=== PATIENT | female | born 1955 | race Caucasian/White ===

== ENCOUNTER → 2017-01-14 | Outpatient (CLI) | payer MEDICARE, MEDICAID ==
[~2017-01-14] MED LIST: ATORVASTATIN CA20 M1 PO; AUGMENTIN 875-1 EACH PO; AURALGAN OT10 ML/BOT OT; BACTRIM DS 8001 TAB PO; HCTZ/TRIAMTEREN1 CAP PO; HYDROCHLOROTHIA25 M1 PO; KEFLEX 500MG.500 MG PO; LASIX 20MG. TAB20 MG PO; LORAZEPAM1 MG/TABLE OR; LORTAB 5/500 501 TAB PO; METOPROLOL SUCC50 M4 PO; METOPROLOL25 MG PO; METOPROLOL50 MG PO; NITROGLYCERIN0.4 M1 SL; NOMEDS; OMEPRAZOLE20 MG PO; ONDANSETRON4 M1 PO; PERCOCET 5/3251 EACH PO; PROAIR HFA0.09 MG/AC IH; SEPTRA DS 800 M1 TAB PO; SYMBICORT1 AE1 IH; TOPIRAMATE50 MG PO; VOLTAREN50 MG PO
== END ==
LOC: LAB 12:39
DX: N39.0 Urinary tract infection, site not specified (principal)

== ENCOUNTER 2017-01-20 21:54 | Emergency (ER) | payer MEDICARE, MEDICAID ==
[~2017-01-20] VITALS: Ht 167.6 cm; Wt 65.8 kg
[~2017-01-20 21:54] MED LIST changes: -ATORVASTATIN CA20 M1 PO; -AUGMENTIN 875-1 EACH PO; -HCTZ/TRIAMTEREN1 CAP PO; -LASIX 20MG. TAB20 MG PO; -NITROGLYCERIN0.4 M1 SL
[2017-01-20] MEDS ORDERED: HCTZ/TRIAMTEREN1 CAP PO (22:02)
[2017-01-20] MEDS ORDERED: KEFLEX 500MG.500 MG PO (22:02)
[2017-01-20] MEDS ORDERED: ATORVASTATIN CA20 M1 PO (22:02)
[2017-01-20] MEDS ORDERED: NITROGLYCERIN0.4 M1 SL (22:03)
--- NOTE | 2017-01-20 22:08 | Emergency Room Report ---
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 DENIES SOB. C/O NAUSEA. HAD HEART CATH ONE WEEK AGO AND HAS 1 BLOCKAGE 40%. 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 N Clinical Suspician of Infection? N Mental Status: 1 - Regular (Normal Baseline) Sepsis Risk:Low Sepsis Risk Have you (or family members/close friends) recently traveled outside the [place]? N If Yes, where/when: Have you had exposure to infectious disease within the past month? N TB? Other? Specify: Source patient, RN notes reviewed, family, RN/MD Exam Limitations no limitations Comment This is a 61-year-old female patient presented to the emergency room with chest pain onset 1 hour ago, associated with productive cough for the past 3 days. Patient had a cardiac catheterization a week ago by Dr. Hamlin, showing 40 percent coronary blockages, per patient. Patient stated that she also has some mild leg swelling, but she is already on Triamtere for this. Patient's chest pain appears pleuritic in nature, worse with deep inspiration, without associated shortness of breath or radiation. Patient denies any recent travel or exposure to sick contacts. ALLERGIES Coded Allergies: Bumble Bee (BEE,BUMBLE) (05/22/16) Home Medications Active Scripts Ondansetron Hydrochloride (Ondansetron Odt) 4 MG PO Q6HP PRN vomiting #6 ODT Prov: 05/22/16 Reported Medications Metoprolol Succinate (Metoprolol Succinate XL) 50 MG PO DAILY #30 Hydrochlorothiazide W/Triamter (Triamterene-Hctz 37.5-25 MG Tb) 1 CAP PO DAILY #30 Atorvastatin Calcium 20 MG PO DAILY #30 CEPHALEXIN (Keflex 500MG Capsule) 500 MG PO BID #20 Nitroglycerin 0.4 MG SL Q 5MIN PRN CHEST PAIN #25 History Medical History General CAD? Yes Angina: Yes [place]: No Hypertension? Yes Hyperlipidemia? Yes CHF? No DVT? No PE? No COPD? Yes Asthma? Yes Anemia? No GERD? No Gastric ulcers? No GI Bleed? No Hernia? No Thyroid Problems? No Hypothyroidism? No CVA? No Seizures? No Diabetes? No Renal Insuffiency? No End Stage Renal Disease? No UTI? Yes Stones? No BPH? No GB Disease: Yes Nephritic Syndrome? No Asplenia? No Hepatitis? No Sickle Cell Disease? No Arthritis? No Migraines? No Cataracts? No Glaucoma? No MRSA? No HIV? No TB? No Anxiety? No Depression? No Cancer? Yes Site: CERVICAL CA More? No Immunization Hx DT/Tetanus 10/26/09 Flu Refused Pneumonia Received In Past Surgical Hx Previous Surgery?Y JOHNSON GallbladdER HEART CATH Family History Family Hx Diabetes No CAD No Hypertension Yes Hyperlipidemia No Cancer Yes TB No Social History Smoking Hx Smoker: Current Every Day Smoker Tobacco: Yes Type Cigarettes Packs/day < 1 Pack Alcohol Alcohol: No Review of Systems All Other Systems Reviewed and Negative Cardiovascular chest pain Physical Exam Vital Signs Vital Signs Date Time Temp Pulse Resp B/P Pulse O2 O2 Flow FiO2 Ox Delivery Rate 01/21 0020 97.5 67 20 141/76 96 01/21 0020 97.5 67 20 141/76 96 / 2349 97.5 72 20 147/85 98 / 2312 97.5 67 20 147/85 98 / 2225 75 20 133/77 98 / 2156 97.5 80 20 159/91 98 General Appearance normal appearance, WD/WN, no apparent distress Respiratory Status Yes: trachea midline, chest symmetrical, non tender chest. No: respiratory distress. Lung Sounds bilateral: normal breath sounds, lungs clear. 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 No Comment Upon evaluation patient appears medically stable, in no acute distress. Advised patient results obtained, as well the need to initiate antibiotic therapy for her symptoms at this time. Advised patient to switch from her current diuretic to Lasix, and see if it'll help her leg edema. Encourage patient to follow-up with accountancy professor as previously scheduled. Results/Orders Laboratory Tests 01/20/17 2319: Opiates Screen NEGATIVE, Urine Methadone Screen NEGATIVE, Barbiturates NEGATIVE, Phencyclidine Screen NEGATIVE, Amphetamines Screen NEGATIVE, Benzodiazepines Screen NEGATIVE, Cocaine Screen NEGATIVE, Marijuana (THC) Screen NEGATIVE, Urine Color YELLOW, Urine Appearance CLEAR, Urine pH 5.5, Ur Specific [place] 1.015, Urine Protein NEGATIVE, Urine Ketones NEGATIVE, Urine Blood NEGATIVE, Urine Nitrate NEGATIVE, Urine Bilirubin NEGATIVE, Urine Urobilinogen 0.2, Ur Leukocyte Esterase TRACE H, Urine RBC 5-10, Urine WBC 3-5, Ur Squamous Epith Cells 3-5, Urine Bacteria 1+, Hyaline Casts 5-10, Urine Mucus 1+, Urine Glucose NEGATIVE 01/20/17 2250: Sodium 140, Potassium 3.5, Chloride 99, Carbon Dioxide 32, BUN 17, Creatinine 1.1 H, Estimated Creat Clear 56, Estimated GFR (MDRD) 50 L, Glucose 144 H, Calcium 9.8, Total Bilirubin 0.2, AST 15, ALT 28, Alkaline Phosphatase 117 H, Creatine Kinase 113, CK-MB (CK-2) Rel Index 0.7, CK and CKMB Interp 0.8, Troponin I < 0.02, Total Protein 8.5 H, Albumin 4.1, Globulin 4.4 H, Albumin/ Globulin Ratio 0.9 L, WBC 10.6, RBC 4.86, Hgb 14.2, Hct 43.4, MCV 89.4, RDW 13.0, Plt Count 258, MPV 7.6, Gran % 65.3, Gran # 7.0, Lymphocytes % 27.5, Monocytes % 4.2, Eosinophils % 2.5, Basophils % 0.5, Lymphocytes # 2.9, Monocytes # 0.4, Eosinophils # 0.3, Basophils # 0.1, PUBS MCHC 32.8, MCH 29.3 Current Medication Orders Sig/Meli Start time Last Medication Dose Route Stop Time Status Admin Amoxicillin/ 500 MG ONCE ONE 01/21 15 DC 01/21 Clavulanate Potassium PO 01/22 16 0008 Amoxicillin/ 0 .STK-MED ONE 01/21 7 DC Clavulanate Potassium PO Aspirin 243 MG ONCE ONE 01/20 2215 DC 01/20 PO 01/20 Sodium Chloride 10 ML PRN PRN 01/20 2215 DCD IV 01/21 2205 Aspirin 0 .STK-MED ONE 01/21 2208 DC .ROUTE Orders Procedure Date/time Status URINALYSIS/COMPLETE 01/20 2317 Complete DRUG ABUSE SCREEN (10) 01/20 2317 Complete 12 LEAD EKG-BESSON (INITIAL) 01/20 2207 Active ELECTROCARDIOGRAM REQUEST 01/20 2207 Active CHEST(2 VIEWS-NOT PORTABLE) 01/20 2207 Active IV SALINE LOCK 01/20 2207 Active SUPERVISOR SHIP MAINTENANCE SERVICES 01/20 2207 Active CBC WITH AUTO DIFF 01/20 2207 Complete CARDIAC ENZYMES 01/20 2207 Complete CHEM 12 PROFILE 01/20 2207 Complete CM/EKG CM/book editor Rhythm Normal Sinus Rhythm Rate 88 Ectopy No Comments No acute ischemic changes EKG rate, NSR, rhythm, no evid. of ischemic chgs, no ectopy, normal QRS, normal [place], normal EKG, no EKG for comparison, non-spec. ST/Twave chgs, ST elevation, ST depression, LBBB, RBBB, ectopy, abnormal Q waves XRAY/CT/US XRAY/CT/US XRAY chest XR interpretation by reviewed by me Xray Results no infiltrates, normal heart size, normal lung inflation leigha Departure Departure Time of Disposition 2355 Disposition DC Home or Self Care(routine) Clinical Impression Primary Impression: Acute bronchitis Qualifiers: Bronchitis organism: unspecified organism Qualified Code: J20.9 - Acute bronchitis, unspecified Secondary Impressions: Edema Qualifiers: Edema type: unspecified Qualified Code: R60.9 - Edema, unspecified Condition STABLE Referrals Osmin Hamlin MD: 1 Week-Call Office Patient Instructions DI for Acute Bronchitis, DI for Dependent Edema Additional Instructions Please HOLD the Triamterene (Hctz/Dyazide) at this time and switch to Lasix 20mg (prescription attached). Please follow up with Dr Hamlin in 1 week. Take the antibiotics prescribed as directed. Discharge Counseling Counseled pt/family regarding diagnosis, test results, medications/RX, home care, follow up needs Comment Please HOLD the Triamterene (Hctz/Dyazide) at this time and switch to Lasix 20mg (prescription attached). Please follow up with Dr Hamiln in 1 week. Take the antibiotics prescribed as directed. Prescriptions Current Visit Scripts Furosemide (Lasix 20MG) 20 MG PO DAILY #30 TAB Amoxicillin/Potassium Clav (Augmentin 875-125 Tablet) 1 EACH PO BID #20 TAB ED Critical Care Critical Care No at [id number]
--- NOTE | 2017-01-20 22:08 | Emergency Room Report ---
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 DENIES SOB. C/O NAUSEA. HAD HEART CATH ONE WEEK AGO AND HAS 1 BLOCKAGE 40%. 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 N Clinical Suspician of Infection? N Mental Status: 1 - Regular (Normal Baseline) Sepsis Risk:Low Sepsis Risk Have you (or family members/close friends) recently traveled outside the [place]? N If Yes, where/when: Have you had exposure to infectious disease within the past month? N TB? Other? Specify: Source patient, RN notes reviewed, family, RN/MD Exam Limitations no limitations Comment This is a 61-year-old female patient presented to the emergency room with chest pain onset 1 hour ago, associated with productive cough for the past 3 days. Patient had a cardiac catheterization a week ago by Dr. Hamlin, showing 40 percent coronary blockages, per patient. Patient stated that she also has some mild leg swelling, but she is already on Triamtere for this. Patient's chest pain appears pleuritic in nature, worse with deep inspiration, without associated shortness of breath or radiation. Patient denies any recent travel or exposure to sick contacts. ALLERGIES Coded Allergies: Bumble Bee (BEE,BUMBLE) (05/22/16) Home Medications Active Scripts Ondansetron Hydrochloride (Ondansetron Odt) 4 MG PO Q6HP PRN vomiting #6 ODT Prov: 05/22/16 Reported Medications Metoprolol Succinate (Metoprolol Succinate XL) 50 MG PO DAILY #30 Hydrochlorothiazide W/Triamter (Triamterene-Hctz 37.5-25 MG Tb) 1 CAP PO DAILY #30 Atorvastatin Calcium 20 MG PO DAILY #30 CEPHALEXIN (Keflex 500MG Capsule) 500 MG PO BID #20 Nitroglycerin 0.4 MG SL Q 5MIN PRN CHEST PAIN #25 History Medical History General CAD? Yes Angina: Yes [place]: No Hypertension? Yes Hyperlipidemia? Yes CHF? No DVT? No PE? No COPD? Yes Asthma? Yes Anemia? No GERD? No Gastric ulcers? No GI Bleed? No Hernia? No Thyroid Problems? No Hypothyroidism? No CVA? No Seizures? No Diabetes? No Renal Insuffiency? No End Stage Renal Disease? No UTI? Yes Stones? No BPH? No GB Disease: Yes Nephritic Syndrome? No Asplenia? No Hepatitis? No Sickle Cell Disease? No Arthritis? No Migraines? No Cataracts? No Glaucoma? No MRSA? No HIV? No TB? No Anxiety? No Depression? No Cancer? Yes Site: CERVICAL CA More? No Immunization Hx DT/Tetanus 10/26/09 Flu Refused Pneumonia Received In Past Surgical Hx Previous Surgery?Y JOHNSON GallbladdER HEART CATH Family History Family Hx Diabetes No CAD No Hypertension Yes Hyperlipidemia No Cancer Yes TB No Social History Smoking Hx Smoker: Current Every Day Smoker Tobacco: Yes Type Cigarettes Packs/day < 1 Pack Alcohol Alcohol: No Review of Systems All Other Systems Reviewed and Negative Cardiovascular chest pain Physical Exam Vital Signs Vital Signs Date Time Temp Pulse Resp B/P Pulse O2 O2 Flow FiO2 Ox Delivery Rate 01/21 0020 97.5 67 20 141/76 96 01/21 0020 97.5 67 20 141/76 96 / 2349 97.5 72 20 147/85 98 / 2312 97.5 67 20 147/85 98 / 2225 75 20 133/77 98 / 2156 97.5 80 20 159/91 98 General Appearance normal appearance, WD/WN, no apparent distress Respiratory Status Yes: trachea midline, chest symmetrical, non tender chest. No: respiratory distress. Lung Sounds bilateral: normal breath sounds, lungs clear. 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 No Comment Upon evaluation patient appears medically stable, in no acute distress. Advised patient results obtained, as well the need to initiate antibiotic therapy for her symptoms at this time. Advised patient to switch from her current diuretic to Lasix, and see if it'll help her leg edema. Encourage patient to follow-up with plater helper as previously scheduled. Results/Orders Laboratory Tests 01/20/17 2319: Opiates Screen NEGATIVE, Urine Methadone Screen NEGATIVE, Barbiturates NEGATIVE, Phencyclidine Screen NEGATIVE, Amphetamines Screen NEGATIVE, Benzodiazepines Screen NEGATIVE, Cocaine Screen NEGATIVE, Marijuana (THC) Screen NEGATIVE, Urine Color YELLOW, Urine Appearance CLEAR, Urine pH 5.5, Ur Specific [place] 1.015, Urine Protein NEGATIVE, Urine Ketones NEGATIVE, Urine Blood NEGATIVE, Urine Nitrate NEGATIVE, Urine Bilirubin NEGATIVE, Urine Urobilinogen 0.2, Ur Leukocyte Esterase TRACE H, Urine RBC 5-10, Urine WBC 3-5, Ur Squamous Epith Cells 3-5, Urine Bacteria 1+, Hyaline Casts 5-10, Urine Mucus 1+, Urine Glucose NEGATIVE 01/20/17 2250: Sodium 140, Potassium 3.5, Chloride 99, Carbon Dioxide 32, BUN 17, Creatinine 1.1 H, Estimated Creat Clear 56, Estimated GFR (MDRD) 50 L, Glucose 144 H, Calcium 9.8, Total Bilirubin 0.2, AST 15, ALT 28, Alkaline Phosphatase 117 H, Creatine Kinase 113, CK-MB (CK-2) Rel Index 0.7, CK and CKMB Interp 0.8, Troponin I < 0.02, Total Protein 8.5 H, Albumin 4.1, Globulin 4.4 H, Albumin/ Globulin Ratio 0.9 L, WBC 10.6, RBC 4.86, Hgb 14.2, Hct 43.4, MCV 89.4, RDW 13.0, Plt Count 258, MPV 7.6, Gran % 65.3, Gran # 7.0, Lymphocytes % 27.5, Monocytes % 4.2, Eosinophils % 2.5, Basophils % 0.5, Lymphocytes # 2.9, Monocytes # 0.4, Eosinophils # 0.3, Basophils # 0.1, PUBS MCHC 32.8, MCH 29.3 Current Medication Orders Sig/Meli Start time Last Medication Dose Route Stop Time Status Admin Amoxicillin/ 500 MG ONCE ONE 01/21 15 DC 01/21 Clavulanate Potassium PO 01/22 16 0008 Amoxicillin/ 0 .STK-MED ONE 01/21 7 DC Clavulanate Potassium PO Aspirin 243 MG ONCE ONE 01/20 2215 DC 01/20 PO 01/20 Sodium Chloride 10 ML PRN PRN 01/20 2215 DCD IV 01/21 2205 Aspirin 0 .STK-MED ONE 01/21 2208 DC .ROUTE Orders Procedure Date/time Status URINALYSIS/COMPLETE 01/20 2317 Complete DRUG ABUSE SCREEN (10) 01/20 2317 Complete 12 LEAD EKG-BESSON (INITIAL) 01/20 2207 Active ELECTROCARDIOGRAM REQUEST 01/20 2207 Active CHEST(2 VIEWS-NOT PORTABLE) 01/20 2207 Active IV SALINE LOCK 01/20 2207 Active TIP INSERTER 01/20 2207 Active CBC WITH AUTO DIFF 01/20 2207 Complete CARDIAC ENZYMES 01/20 2207 Complete CHEM 12 PROFILE 01/20 2207 Complete CM/EKG 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 of ischemic chgs, no ectopy, normal QRS, normal [place], normal EKG, no EKG for comparison, non-spec. ST/Twave chgs, ST elevation, ST depression, LBBB, RBBB, ectopy, abnormal Q waves XRAY/CT/US XRAY/CT/US XRAY chest XR interpretation by reviewed by me Xray Results no infiltrates, normal heart size, normal lung inflation leigha Departure Departure Time of Disposition 2355 Disposition DC Home or Self Care(routine) Clinical Impression Primary Impression: Acute bronchitis Qualifiers: Bronchitis organism: unspecified organism Qualified Code: J20.9 - Acute bronchitis, unspecified Secondary Impressions: Edema Qualifiers: Edema type: unspecified Qualified Code: R60.9 - Edema, unspecified Condition STABLE Referrals Osmin Hamlin MD: 1 Week-Call Office Patient Instructions DI for Acute Bronchitis, DI for Dependent Edema Additional Instructions Please HOLD the Triamterene (Hctz/Dyazide) at this time and switch to Lasix 20mg (prescription attached). Please follow up with Dr Hamlin in 1 week. Take the antibiotics prescribed as directed. Discharge Counseling Counseled pt/family regarding diagnosis, test results, medications/RX, home care, follow up needs Comment Please HOLD the Triamterene (Hctz/Dyazide) at this time and switch to Lasix 20mg (prescription attached). Please follow up with Dr Hamlin in 1 week. Take the antibiotics prescribed as directed. Prescriptions Current Visit Scripts Furosemide (Lasix 20MG) 20 MG PO DAILY #30 TAB Amoxicillin/Potassium Clav (Augmentin 875-125 Tablet) 1 EACH PO BID #20 TAB ED Critical Care Critical Care No at [id number]
[2017-01-20 23:04] LABS: LYMPH # 2.9 K/mm3 (0.7-4.5); LYMPH % 27.5 % (10-50.0)
[2017-01-20 23:25] LABS: BUN 17 mg/dL (7-18); GFR (ESTIMATED) 50 ML/MIN (59-)
[2017-01-20 23:27] LABS: URINE BILIRUBIN - DIPSTICK NEGATIVE (NEG); URINE BLOOD NEGATIVE (NEG)
[2017-01-20 23:38] LABS: AMPHETAMINES/METAMPHETAMINES NEGATIVE ng/mL (<1000)
[2017-01-20 23:42] LABS: HEMOGLOBIN 14.2 g/dL (12.2-16.2)
[2017-01-21] MEDS ORDERED: LASIX 20MG. TAB20 MG PO (00:02)
[2017-01-21] MEDS ORDERED: AUGMENTIN 875-1 EACH PO (00:03)
[2017-01-21 00:20] VITALS: BP 141/76
--- NOTE | 2017-01-21 07:32 | RADIOLOGY REPORT PS360 ---
CHEST(2 VIEWS-NOT PORTABLE) HISTORY: C/O CHEST PAIN ORDERING PHYSICIAN: Honorio Garcia MD PATIENT AGE: 61 years COMPARISON: 09 27 12 FINDINGS: The cardiomediastinal silhouette and pulmonary vascularity are within normal limits. The lungs are clear without infiltrates, suspicious nodules, or pleural effusions. No acute bony abnormalities. Faint nodular opacity overlies the left lower lobe at the fifth rib and may be due to nipple shadow. IMPRESSION: Negative chest, no acute finding
== END 2017-01-21 00:21 | disposition home or self-care (01) ==
LOC: ER 21:54
PROVIDERS: Emergency Medicine
DX: J44.0 Chronic obstructive pulmonary disease with (acute) lower respiratory infection (principal); J20.9 Acute bronchitis, unspecified; R60.9 Edema, unspecified; F17.210 Nicotine dependence, cigarettes, uncomplicated; Z85.41 Personal history of malignant neoplasm of cervix uteri; I10 Essential (primary) hypertension; E78.5 Hyperlipidemia, unspecified; I25.10 Atherosclerotic heart disease of native coronary artery without angina pectoris; Z91.030 Bee allergy status; Z79.899 Other long term (current) drug therapy

== ENCOUNTER 2017-02-18 13:57 | Emergency (ER) | payer MEDICARE ==
[~2017-02-18] VITALS: Ht 167.6 cm; Wt 67.1 kg
--- NOTE | 2017-02-18 14:16 | Emergency Room Report ---
History of Present Illness Time Seen by MD Baptiste Presenting Problem in Triage Pt arrived:Walked Presenting Problem:STATES THAT SHE IS JUST DIZZY, DON'T FEEL GOOD AND HAS BEEN PASSING OUT. 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 N Clinical Suspician of Infection? N Mental Status: 1 - Regular (Normal Baseline) Sepsis Risk:Low Sepsis Risk Have you (or family members/close friends) recently traveled outside the [place]? N If Yes, where/when: Have you had exposure to infectious disease within the past month? N TB? Other? Specify: Comment The patient states that 2 days ago on Tuesday she began feeling generally weak and lightheaded and having episodes of "passing out". She says she has had 3 episodes today and had to episode yesterday where she almost passed out. She denies any pain including chest pain, abdominal pain, or headache. No nausea, vomiting, or diarrhea. No fever or URI symptoms. No urinary symptoms. No new medications. She had a heart cath about a month ago and had a 40 percent blockage. No stents. ALLERGIES Coded Allergies: Bumble Bee (BEE,BUMBLE) (05/22/16) Penicillins (02/18/17) Home Medications Active Scripts Ondansetron Hydrochloride (Ondansetron Odt) 4 MG PO Q6HP PRN vomiting #6 ODT Prov: 05/22/16 Furosemide (Lasix 20MG) 20 MG PO DAILY #30 TAB Prov: 01/21/17 Reported Medications Metoprolol Succinate (Metoprolol Succinate XL) 50 MG PO DAILY #30 Hydrochlorothiazide W/Triamter (Triamterene-Hctz 37.5-25 MG Tb) 1 CAP PO DAILY #30 Atorvastatin Calcium 20 MG PO DAILY #30 Nitroglycerin 0.4 MG SL Q 5MIN PRN CHEST PAIN #25 History Medical History General CAD? Yes Angina: Yes [place]: No Hypertension? Yes Hyperlipidemia? Yes CHF? No DVT? No PE? No COPD? Yes Asthma? Yes Anemia? No GERD? No Gastric ulcers? No GI Bleed? No Hernia? No Thyroid Problems? No Hypothyroidism? No CVA? No Seizures? No Diabetes? No Renal Insuffiency? No End Stage Renal Disease? No UTI? Yes Stones? No BPH? No GB Disease: Yes Nephritic Syndrome? No Asplenia? No Hepatitis? No Sickle Cell Disease? No Arthritis? No Migraines? No Cataracts? No Glaucoma? No MRSA? No HIV? No TB? No Anxiety? No Depression? No Cancer? Yes Site: CERVICAL CA More? No Immunization Hx Ped.Immunizations UTD Yes DT/Tetanus 10/26/09 Flu Refused Pneumonia Received In Past Surgical Hx Previous Surgery?Y JOHNSON GallbladdER HEART CATH Family History Family Hx Diabetes No CAD No Hypertension Yes Hyperlipidemia No Cancer Yes TB No Social History Smoking Hx Smoker: Never Smoker Tobacco: No Packs/day < 1 Pack Are you/the child exposed to second-hand smoke: Yes Alcohol Alcohol: No Review of Systems All Other Systems Reviewed and Negative Constitutional denies fever Respiratory denies cough, denies shortness of breath Cardiovascular denies chest pain, denies edema, denies palpitations, syncope Gastrointestinal denies abdominal pain, denies diarrhea, denies nausea, denies vomiting Genitourinary denies: dysuria, frequency. Psychiatric/Neurological denies headache, denies numbness, denies weakness Physical Exam Vital Signs Vital Signs Date Time Temp Pulse Resp B/P Pulse O2 O2 Flow FiO2 Ox Delivery Rate 02/18 1703 67 14 132/79 99 02/18 1612 67 14 145/81 100 02/18 1525 97.9 61 14 132/78 99 02/18 1455 61 132/78 02/18 1455 61 130/89 02/18 1454 66 123/79 02/18 1435 61 14 128/76 99 02/18 1402 97.9 60 18 136/89 97 General Appearance normal appearance, WD/WN Eye Exam - bilateral eye normal exam, bilateral eye PERRL, bilateral eye EOMI Ear, Nose, Throat hearing grossly normal, normal ENT inspection Neck normal inspection, non-tender, supple, full range of motion Respiratory Status Yes: trachea midline, chest symmetrical, non tender chest. No: respiratory distress. Lung Sounds bilateral: normal breath sounds, lungs clear. 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 No Results/Orders Laboratory Tests 02/18/17 1415: Creatine Kinase 121, CK-MB (CK-2) Rel Index 0.5, CK and CKMB Interp 0.6, Troponin I < 0.02 02/18/17 1415: Sodium 139, Potassium 4.5, Chloride 102, Carbon Dioxide 27, BUN 22 H, Creatinine 1.1 H, Estimated Creat Clear 57, Estimated GFR (MDRD) 50 L, Glucose 103, Calcium 9.6, Total Bilirubin 0.2, AST 16, ALT 29, Alkaline Phosphatase 101, Total Protein 7.9, Albumin 3.8, Globulin 4.1 H, Albumin/Globulin Ratio 0.9 L, WBC 7.3, RBC 4.27, Hgb 12.6, Hct 39.6, MCV 92.7, RDW 12.8, Plt Count 162, MPV 10.0, Gran % 58.5, Gran # 4.3, Lymphocytes % 32.5, Monocytes % 5.3, Eosinophils % 3.2, Basophils % 0.4, Lymphocytes # 2.4, Monocytes # 0.4, Eosinophils # 0.2, Basophils # 0.0, PUBS MCHC 31.8, MCH 29.5 Current Medication Orders Sig/Meli Start time Last Medication Dose Route Stop Time Status Admin Sodium Chloride 1,000 ML .Q1H1M 02/18 1530 DC 02/18 IV 02/18 1630 1530 Sodium Chloride 1,000 ML .STK-MED ONE 02/18 1530 DC IV Sodium Chloride 10 ML PRN PRN 02/18 1415 DCD IV 02/19 1409 Orders Procedure Date/time Status ORTHOSTATIC B/P 02/18 1448 Active ELECTROCARDIOGRAM REQUEST 02/18 1428 Active CARDIAC ENZYMES 02/18 1428 Complete IV SALINE LOCK 02/18 1409 Active CBC WITH AUTO DIFF 02/18 140 Complete CHEM 12 PROFILE 02/18 140 Complete 12 LEAD EKG-DENIS (INITIAL) 02/18 UNK Active CM/EKG CM/EKG Comments EKG interpreted by Nelson Jaquez MD: Rhythm: sinus bradycardia Rate: 57 [place]: normal Ectopy: none Conduction: normal ST Segment Changes: none T Wave Changes: none Q Waves: none No evidence of acute ischemia or injury Progress - 4:50 PM: The patient says she feels better after IV fluids and would like to be discharged. Departure Departure Disposition DC Home or Self Care(routine) Clinical Impression Primary Impression: Syncope Qualifiers: Syncope type: unspecified Qualified Code: R55 - Syncope and collapse Condition STABLE Referrals Evita MA,Manpreet Pérez (PCP) Patient Instructions DI for Syncope in Adults (Fainting) Additional Instructions Rest, drink plenty of fluids. Return to the emergency department if fainting returns. Follow-up with your primary care provider next week, call on Tuesday. ED Critical Care Critical Care No at 1915
[2017-02-18 14:31] LABS: LYMPH # 2.4 K/mm3 (0.7-4.5); LYMPH % 32.5 % (10-50.0)
[2017-02-18 14:32] LABS: HEMOGLOBIN 12.6 g/dL (12.2-16.2)
[2017-02-18 17:03] VITALS: BP 132/79
--- OUTSIDE RECORDS SUMMARY | 2017-02-25 06:37 | External Medical Summary Rpt | CCD ---
Author Author , JERRY Organization JERRY Address Unknown Phone [email or web address] Immunization Name Date Rout CVX Reac Dose Comm Prov Is Faci e tion ent ider Refu lity Give sed n Infl 01-0 Intr 140 0.5 Hist [facility] No [facility] uenz 2-20 amus mL oric ART5 ART5 a, 17 cula al 91 91 P-Fr r Info ee rmat ion - Sour ce Unsp ecif ied
--- OUTSIDE RECORDS SUMMARY | 2017-02-25 06:37 | External Medical Summary Rpt | CCD ---
Author Author , JERRY Organization JERRY Address Unknown Phone [email or web address] Immunization Name Date Rout CVX Reac Dose Comm Prov Is Faci e tion ent ider Refu lity Give sed n Infl 01-0 Intr 140 0.5 Hist [facility] No [facility] uenz 2-20 amus mL oric ART5 ART5 a, 17 cula al 91 91 P-Fr r Info ee rmat ion - Sour ce Unsp ecif ied
--- OUTSIDE RECORDS SUMMARY | 2017-02-25 06:38 | External Medical Summary Rpt ---
Author Author JERRY Collin, [employer] Organization [employer] Address Unknown Phone Unavailable Results Comprehensive metabolic 2000 panel in Serum or Plasma Observa Value Referen Units Interpr Notes Date tion ce etation Range Albumin/G 1.1 - 1.8 No Low No Oct 6 lobulin informati informati 2017 2:15 [Mass on in on in PM ratio] in source source Serum or data data Plasma Albumin 3.4 - 5.0 gm/dL Normal No Oct 6 [Mass/vol informati 2017 2:15 ume] in on in PM Serum or source Plasma data Alkaline 46 - 116 U/L Normal No Oct 6 phosphata informati 2017 2:15 se on in PM [Enzymati source c data activity/ volume] in Serum or Plasma Bilirubin 0.2 - 1.0 mg/dL Normal No Oct 6 .total informati 2017 2:15 [Mass/vol on in PM ume] in source Serum or data Plasma Urea 7 - 18 mg/dL High No Oct 6 nitrogen informati 2017 2:15 [Mass/vol on in PM ume] in source Serum or data Plasma Calcium 8.5 - mg/dL Normal No Oct 6 [Mass/vol 10.1 informati 2017 2:15 ume] in on in PM Serum or source Plasma data Chloride 98 - 107 mmoL/L Normal No Oct 6 [Moles/vo informati 2017 2:15 lume] in on in PM Serum or source Plasma data Carbon 21.0 - mmoL/L Normal No Oct 6 dioxide, 32.0 informati 2017 2:15 total on in PM [Moles/vo source lume] in data Serum or Plasma Creatinin 0.55 - mg/dL High No Oct 6 e 1.02 informati 2017 2:15 [Mass/vol on in PM ume] in source Serum or data Plasma Creatinin 50 - 200 ML/MIN Normal No Oct 6 e renal informati 2017 2:15 clearance on in PM source predicted data by Cockcroft -Gault formula Estimated 59- ML/MIN Low REFERENCE Oct 6 RANGE: 2016 2:15 glomerula >60 PM r ML/MIN/1. filtratio 73 SQUARE n rate METERSIf (GF this patient is -A merican, then multiply theresult by 1.210. Globulin 1.3 - 3.2 gm/dL High No Feb 18 [Mass/vol informati 2016 2:15 ume] in on in PM Serum source data Glucose 74 - 106 mg/dL Normal No Feb 18 [Mass/vol informati 2016 2:15 ume] in on in PM Serum or source Plasma data Potassium 3.5 - 5.1 mmoL/L Normal POTASSIUM Feb 18September 2:15 [Moles/vo FALSELY PM lume] in ELEVATED Serum or DUE TO Plasma SLIGHT HEMOLYSIS Sodium 136 - 145 mmoL/L Normal No Feb 18 [Moles/vo 2016 2:15 lume] in on in PM Serum or source Plasma data Aspartate 15 - 37 U/L Normal AST SeptemberFeb 182016 2:15 aminotran FALSELY PM sferase ELEVATED [Enzymati DUE TO c SLIGHT activity/ HEMOLYSIS volume] in Serum or Plasma Alanine 12 - 78 U/L Normal No Feb 18 aminotran 2016 2:15 sferase on in PM [Enzymati source c data activity/ volume] in Serum or Plasma Protein 6.4 - 8.2 gm/dL Normal No Feb 18 [Mass/vol informati 2016 2:15 ume] in on in PM Serum or source Plasma data CBC W Auto Differential panel in Blood Observa Value Referen Units Interpr Notes Date tion ce etation Range Basophils 0 - 0.2 K/MM3 Normal No Feb 182016 2:15 [#/volume on in PM ] in source Blood by data Automated count Basophils 0.1 - 2.0 % Normal No Feb 18 / inform2016 2:15 leukocyte on in PM s in source Blood by data Automated count Eosinophi 0.0 - 0.4 K/mm3 Normal No Feb 18 ls ati 2016 2:15 [#/volume on in PM ] in source Blood by data Automated count Eosinophi 0.1 - % Normal No Feb 18 ls/100 12.0 informati 2016 2:15 leukocyte on in PM s in source Blood by data Automated count Granulocy 1.8 - 7.8 K/mm3 Normal No Feb 18 jessica 2016 2:15 [#/volume on in PM ] in source Blood by data Automated count Granulocy 37.0 - % Normal No Feb 18 jessica/100 80.0 informati 2016 2:15 leukocyte on in PM s in source Blood by data Automated count Hematocri 37.0 - % Normal No Feb 18 t [Volume 47.0 inform2016 2:15 on in PM Fraction] source of Blood data Hemoglobi 12.2 - g/dL No No Feb 6 n 16.2 informati informati 2016 2:15 [Mass/vol on in on in PM ume] in source source Blood data data Lymphocyt 0.7 - 4.5 K/mm3 Normal No Feb 18 es informati 2016 2:15 [#/volume on in PM ] in source Unspecifi data ed specimen by Automated count Lymphocyt 10 - 50.0 % Normal No Feb 18 es 2016 2:15 [#/volume on in PM ] in source Unspecifi data ed specimen by Automated count Erythrocy 27 - 31.2 pg Normal No Feb 18 te mean inform2016 2:15 corpuscul on in PM ar source hemoglobi data n [Entitic mass] Erythrocy 31.8 - g/dl Normal No Feb 18 te mean 35.4 informati 2016 2:15 corpuscul on in PM ar source hemoglobi data n concentra tion [Mass/vol ume] by Automated count Erythrocy 82.2 - fl Normal No Feb 18 te mean 97.8 informati 2016 2:15 corpuscul on in PM ar volume source [Entitic data volume] by Automated count Monocytes 0.1 - 1.0 K/mm3 Normal No Feb 182016 2:15 [#/volume on in PM ] in source Blood by data Automated count Monocytes 1.7 - 9.3 % Normal No Feb 6 /100 informati 2017 2:15 leukocyte on in PM s in source Blood by data Automated count Platelet 7.4 - fl Normal No Feb 18 mean 10.4 informati 2016 2:15 volume on in PM [Entitic source volume] data in Blood by Automated count Platelets 142 - 424 K/mm3 No No Feb 6 informati informati 2016 2:15 [#/volume on in on in PM ] in source source Blood data data Erythrocy 4.2 - 5.4 M/mm3 Normal No Feb 6 jessica informati 2017 2:15 [#/volume on in PM ] in source Amniotic data fluid Erythrocy 11.5 - % Normal No Feb 6 te 17.5 informati 2016 2:15 distribut on in PM ion width source [Entitic data volume] by Automated count Leukocyte 4.8 - K/MM3 Normal No Oct 6 s 10.8 informati 2017 2:15 [#/volume on in PM ] in source Blood data Drugs identified in Urine by Screen method Observa Value Referen Units Interpr Notes Date tion ce etation Range Positive urine drug screen samples are stored for 7 days. Contact the Lab if confirmation of positives is needed. Ampheta NEGATIV <1000 ng/mL No No Sep 7 mine E informa informa 2017 [Presen tion in tion in 11:19 ce] in source source PM Urine data data by Screen method Barbitura <200 ng/mL No No Sep 7 jessica informati informati 2017 [Mass/vol on in on in 11:19 PM ume] in source source Urine by data data Screen method Benzodiaz 200 ng/mL ng/mL No No Sep 7 epines informati informati 2017 [Mass/vol on in on in 11:19 PM ume] in source source Serum or data data Plasma by Screen method Cocaine <300 ng/g No No Sep 7 [Mass/vol informati informati 2017 ume] in on in on in 11:19 PM Unspecifi source source ed data data specimen Methadone <300 ng/mL No No Sep 7 informati informati 2017 [Mass/vol on in on in 11:19 PM ume] in source source Unspecifi data data ed specimen Opiates <300 ng/mL No No Sep 7 [Mass/vol informati informati 2017 ume] in on in on in 11:19 PM Unspecifi source source ed data data specimen Phencycli <25 ng/mL No No Sep 7 dine informati informati 2017 [Mass/vol on in on in 11:19 PM ume] in source source Unspecifi data data ed specimen 11-Hydr NEGATIV <50 ng/mL No No Sep 7 oxy E informa informa 2017 delta-9 tion in tion in 11:19 source source PM tetrahy data data drocann abinol [Presen ce] in Unspeci fied specime n Urinalysis dipstick W Reflex Microscopic panel in Urine Observa Value Referen Units Interpr Notes Date tion ce etation Range Appeara CLEAR CLEAR No No No Sep 7 nce of informa informa informa 2017 Urine tion in tion in tion in 11:19 source source source PM data data data Bacteri 1+ O No No No Sep 7 a informa informa informa 2016 [Presen tion in tion in tion in 11:19 ce] in source source source PM Urine data data data sedimen t by Light microsc opy Bilirub NEGATIV NEG No No No Sep 7 in E informa informa informa 2016 [Presen tion in tion in tion in 11:19 ce] in source source source PM Urine data data data by Test strip Erythro NEGATIV NEG No No No Sep 7 cytes E informa informa informa 2016 [Presen tion in tion in tion in 11:19 ce] in source source source PM Urine data data data Color YELLOW YELLOW No No No Sep 7 of informa informa informa 2017 Urine tion in tion in tion in 11:19 source source source PM data data data Glucose NEG No No No Sep 7 [Mass/vol informati informati informati 2017 ume] in on in on in on in 11:19 PM Urine by source source source Test data data data strip Hyaline 5-10 NONE #/lpf No No Sep 7 casts informa informa 2016 [Presen tion in tion in 11:19 ce] in source source PM Urine data data sedimen t by Light microsc opy Ketones NEGATIV NEG mg/dL No No Sep 7 E informa informa 2016 [Presen tion in tion in 11:19 ce] in source source PM Urine data data by Automat ed test strip Mucus TRACE NEG No Abnorma No Sep 7 [Presen informa l informa 2016 ce] in tion in tion in 11:19 Urine source source PM sedimen data data t by Light microsc opy Mucus 1+ OCC No No No Sep 7 [Presen informa informa informa 2016 ce] in tion in tion in tion in 11:19 Urine source source source PM sedimen data data data t by Light microsc opy Nitrite NEGATIV NEG No No No Sep 7 E informa informa informa 2017 [Presen tion in tion in tion in 11:19 ce] in source source source PM Urine data data data by Test strip pH of 5.0 - 8.5 No Normal No Sep 7 Urine informati informati 2017 on in on in 11:19 PM source source data data Protein NEG mg/dL No No Sep 7 [Mass/vol informati informati 2017 ume] in on in on in 11:19 PM Urine by source source Automated data data test strip Erythro 5-10 0 rbc/hpf No No Sep 7 cytes informa informa 2017 [Presen tion in tion in 11:19 ce] in source source PM Urine data data sedimen t by Light microsc opy Specific 1.005 - No Normal No Sep 7 gravity 1.030 informati informati 2017 of Urine on in on in 11:19 PM source source data data Epithel 3-5 0 - 5 #/hpf No No Sep 7 ial informa informa 2017 cells.s tion in tion in 11:19 quamous source source PM data data [Presen ce] in Urine sedimen t by Microsc opy high power field Urobili 0.2 NEG E.U./dL No No Sep 7 nogen informa informa 2017 [Presen tion in tion in 11:19 ce] in source source PM Urine data data by Test strip Leukocy [3 O wbc/hpf No No Sep 7 jessica wbc/hpf informa informa 2017 [#/volu ; 5 tion in tion in 11:19 me] in wbc/hpf source source PM Urine ] data data Urinalysis dipstick W Reflex Microscopic panel in Urine Observa Value Referen Units Interpr Notes Date tion ce etation Range Appeara CLEAR CLEAR No No No Sep 7 nce of informa informa informa 2017 Urine tion in tion in tion in 11:19 source source source PM data data data Bilirub NEGATIV NEG No No No Sep 7 in E informa informa informa 2017 [Presen tion in tion in tion in 11:19 ce] in source source source PM Urine data data data by Test strip Erythro NEGATIV NEG No No No Sep 7 cytes E informa informa informa 2017 [Presen tion in tion in tion in 11:19 ce] in source source source PM Urine data data data Color YELLOW YELLOW No No No Sep 7 of informa informa informa 2017 Urine tion in tion in tion in 11:19 source source source PM data data data Glucose NEG No No No Sep 7 [Mass/vol informati informati informati 2017 ume] in on in on in on in 11:19 PM Urine by source source source Test data data data strip Ketones NEGATIV NEG mg/dL No No Sep 7 E informa informa 2016 [Presen tion in tion in 11:19 ce] in source source PM Urine data data by Automat ed test strip Mucus TRACE NEG No Abnorma No Sep 7 [Presen informa l informa 2016 ce] in tion in tion in 11:19 Urine source source PM sedimen data data t by Light microsc opy Nitrite NEGATIV NEG No No No Sep 7 E informa informa informa 2016 [Presen tion in tion in tion in 11:19 ce] in source source source PM Urine data data data by Test strip pH of 5.0 - 8.5 No Normal No Sep 7 Urine informati informati 2017 on in on in 11:19 PM source source data data Protein NEG mg/dL No No Sep 7 [Mass/vol informati informati 2017 ume] in on in on in 11:19 PM Urine by source source Automated data data test strip Specific 1.005 - No Normal No Sep 7 gravity 1.030 informati informati 2016 of Urine on in on in 11:19 PM source source data data Urobili 0.2 NEG E.U./dL No No Sep 7 nogen informa informa 2016 [Presen tion in tion in 11:19 ce] in source source PM Urine data data by Test strip CBC W Auto Differential panel in Blood Observa Value Referen Units Interpr Notes Date tion ce etation Range Basophils 0 - 0.2 K/MM3 Normal No Sep 7 inform2016 [#/volume on in 10:50 PM ] in source Blood by data Automated count Basophils 0.1 - 2.0 % Normal No Sep 7 /100 inform 2017 leukocyte on in 10:50 PM s in source Blood by data Automated count Eosinophi 0.0 - 0.4 K/mm3 Normal No Sep 7 ls 2016 [#/volume on in 10:50 PM ] in source Blood by data Automated count Eosinophi 0.1 - % Normal No Sep 7 ls/100 12.0 inform 2017 leukocyte on in 10:50 PM s in source Blood by data Automated count Granulocy 1.8 - 7.8 K/mm3 Normal No Sep 7 jessica inform 2017 [#/volume on in 10:50 PM ] in source Blood by data Automated count Granulocy 37.0 - % Normal No Sep 7 jessica/100 80.0 informati 2017 leukocyte on in 10:50 PM s in source Blood by data Automated count Hematocri 37.0 - % Normal No Sep 7 t [Volume 47.0 informati 2017 on in 10:50 PM Fraction] source of Blood data Hemoglobi 12.2 - g/dL No No Sep 7 n 16.2 informati inform 2017 [Mass/vol on in on in 10:50 PM ume] in source source Blood data data Lymphocyt 0.7 - 4.5 K/mm3 Normal No Sep 7 es inform 2017 [#/volume on in 10:50 PM ] in source Unspecifi data ed specimen by Automated count Lymphocyt 10 - 50.0 % Normal No Sep 7 es inform 2017 [#/volume on in 10:50 PM ] in source Unspecifi data ed specimen by Automated count Erythrocy 27 - 31.2 pg Normal No Sep 7 te mean inform 2017 corpuscul on in 10:50 PM ar source hemoglobi data n [Entitic mass] Erythrocy 31.8 - g/dl Normal No Sep 7 te mean 35.4 inform 2017 corpuscul on in 10:50 PM ar source hemoglobi data n concentra tion [Mass/vol ume] by Automated count Erythrocy 82.2 - fl Normal No Sep 7 te mean 97.8 informati 2017 corpuscul on in 10:50 PM ar volume source [Entitic data volume] by Automated count Monocytes 0.1 - 1.0 K/mm3 Normal No Sep 7 inform 2017 [#/volume on in 10:50 PM ] in source Blood by data Automated count Monocytes 1.7 - 9.3 % Normal No Sep 7 /100 informati 2017 leukocyte on in 10:50 PM s in source Blood by data Automated count Platelet 7.4 - fl Normal No Sep 7 mean 10.4 informati 2016 volume on in 10:50 PM [Entitic source volume] data in Blood by Automated count Platelets 142 - 424 K/mm3 Normal No Sep 7 informati 2016 [#/volume on in 10:50 PM ] in source Blood data Erythrocy 4.2 - 5.4 M/mm3 Normal No Sep 7 jessica informati 2016 [#/volume on in 10:50 PM ] in source Amniotic data fluid Erythrocy 11.5 - % Normal No Sep 7 te 17.5 informati 2016 distribut on in 10:50 PM ion width source [Entitic data volume] by Automated count Leukocyte 4.8 - K/MM3 Normal No Sep 7 s 10.8 informati 2016 [#/volume on in 10:50 PM ] in source Blood data Basic metabolic panel in Blood Observa Value Referen Units Interpr Notes Date tion ce etation Range Urea 7 - 18 mg/dL Normal No Jan 11 nitrogen informati 2016 7:35 [Mass/vol on in AM ume] in source Serum or data Plasma Calcium 8.5 - mg/dL Normal No Jan 11 [Mass/vol 10.1 informati 2016 7:35 ume] in on in AM Serum or source Plasma data Chloride 98 - 107 mmoL/L Normal No Jan 11 [Moles/vo informati 2016 7:35 lume] in on in AM Serum or source Plasma data Carbon 21.0 - mmoL/L Normal No Jan 11 dioxide, 32.0 informati 2016 7:35 total on in AM [Moles/vo source lume] in data Serum or Plasma Creatinin 0.55 - mg/dL High No Jan 11 e 1.02 informati 2016 7:35 [Mass/vol on in AM ume] in source Serum or data Plasma Estimated 59- ML/MIN Low REFERENCE Jan 11 RANGE: 2016 7:35 glomerula >60 AM r ML/MIN/1. filtratio 73 SQUARE n rate METERSIf (GF this patient is -A merican, then multiply theresult by 1.210. Glucose 74 - 106 mg/dL High No Jan 11 [Mass/vol informati 2016 7:35 ume] in on in AM Serum or source Plasma data Potassium 3.5 - 5.1 mmoL/L Low No Jan 11 informati 2016 7:35 [Moles/vo on in AM lume] in source Serum or data Plasma Sodium 136 - 145 mmoL/L Normal No Jan 11 [Moles/vo informati 2016 7:35 lume] in on in AM Serum or source Plasma data CBC W Auto Differential panel in Blood Observa Value Referen Units Interpr Notes Date tion ce etation Range Basophils 0 - 0.2 K/MM3 Normal No Jan 11 informati 2016 7:35 [#/volume on in AM ] in source Blood by data Automated count Basophils 0.1 - 2.0 % Normal No Jan 11 /100 informati 2016 7:35 leukocyte on in AM s in source Blood by data Automated count Eosinophi 0.0 - 0.4 K/mm3 Normal No Jan 11 ls informati 2016 7:35 [#/volume on in AM ] in source Blood by data Automated count Eosinophi 0.1 - % Normal No Jan 11 ls/100 12.0 informati 2016 7:35 leukocyte on in AM s in source Blood by data Automated count Granulocy 1.8 - 7.8 K/mm3 Normal No Jan 11 jessica informati 2016 7:35 [#/volume on in AM ] in source Blood by data Automated count Granulocy 37.0 - % Normal No Jan 11 jessica/100 80.0 informati 2016 7:35 leukocyte on in AM s in source Blood by data Automated count Hematocri 37.0 - % Normal No Jan 11 t [Volume 47.0 informati 2016 7:35 on in AM Fraction] source of Blood data Hemoglobi 12.2 - g/dL Normal No Jan 11 n 16.2 informati 2016 7:35 [Mass/vol on in AM ume] in source Blood data Lymphocyt 0.7 - 4.5 K/mm3 Normal No Jan 11 es informati 2016 7:35 [#/volume on in AM ] in source Unspecifi data ed specimen by Automated count Lymphocyt 10 - 50.0 % Normal No Jan 11 es informati 2016 7:35 [#/volume on in AM ] in source Unspecifi data ed specimen by Automated count Erythrocy 27 - 31.2 pg Normal No Jan 11 te mean informati 2016 7:35 corpuscul on in AM ar source hemoglobi data n [Entitic mass] Erythrocy 31.8 - g/dl Normal No Jan 11 te mean 35.4 informati 2016 7:35 corpuscul on in AM ar source hemoglobi data n concentra tion [Mass/vol ume] by Automated count Erythrocy 82.2 - fl Normal No Jan 11 te mean 97.8 informati 2017 7:35 corpuscul on in AM ar volume source [Entitic data volume] by Automated count Monocytes 0.1 - 1.0 K/mm3 Normal No Jan 11 informati 2016 7:35 [#/volume on in AM ] in source Blood by data Automated count Monocytes 1.7 - 9.3 % Normal No Jan 11 /100 informati 2016 7:35 leukocyte on in AM s in source Blood by data Automated count Platelet 7.4 - fl Low No Jan 11 mean 10.4 informati 2016 7:35 volume on in AM [Entitic source volume] data in Blood by Automated count Platelets 142 - 424 K/mm3 Normal No Jan 11 informati 2016 7:35 [#/volume on in AM ] in source Blood data Erythrocy 4.2 - 5.4 M/mm3 Low No Jan 11 jessica informati 2016 7:35 [#/volume on in AM ] in source Amniotic data fluid Erythrocy 11.5 - % Normal No Jan 11 te 17.5 informati 2016 7:35 distribut on in AM ion width source [Entitic data volume] by Automated count Leukocyte 4.8 - K/MM3 Normal No Jan 11 s 10.8 informati 2016 7:35 [#/volume on in AM ] in source Blood data Hepatitis B virus susceptibility panel in Isolate by Genotype method Observa Value Referen Units Interpr Notes Date tion ce etation Range Hepatit Negativ Negativ No No No Dec 06 is A e e informa informa informa 2017 virus tion in tion in tion in 4:20 PM IgM Ab source source source [Presen data data data ce] in Serum by Immunoa ssay Hepatit Negativ Negativ No No No Dec 06 is B e e informa informa informa 2017 virus tion in tion in tion in 4:20 PM core source source source IgM Ab data data data [Presen ce] in Serum by Immunoa ssay Hepatitis 0.0 - 0.9 No No INFCE Dec 06 C virus informati informati Result 2017 4:20 Ab on in on in Units: PM Signal/Cu source source s/co toff data data ratioNega [Ratio] tive: in Serum < or Plasma 0.8Indete by rminate: Immunoass 0.8 - ay 0.9Positi ve: > 0.9The CDC recommend s that a positive HCV antibody resultbe followed up with a HCV Nucleic Acid Amplifica tiontest (202530). Performed at: [facility] [id number] [address] [place], [place] [id number] [employer]lier Development Manager: Jonathan Farrell PhD, Phone: [phone] Hepatit Negativ Negativ No No No Dec 06 is B e e informa informa informa 2017 virus tion in tion in tion in 4:20 PM surface source source source Ag data data data [Presen ce] in Serum by Immunoa ssay Comprehensive metabolic 2000 panel in Serum or Plasma Observa Value Referen Units Interpr Notes Date tion ce etation Range Albumin/G 1.1 - 1.8 No Normal No Dec 06 lobulin informati informati 2016 4:20 [Mass on in on in PM ratio] in source source Serum or data data Plasma Albumin 3.4 - 5.0 gm/dL Normal No Dec 06 [Mass/vol informati 2016 4:20 ume] in on in PM Serum or source Plasma data Alkaline 46 - 116 U/L Normal No Dec 06 phosphata informati 2016 4:20 se on in PM [Enzymati source c data activity/ volume] in Serum or Plasma Bilirubin 0.2 - 1.0 mg/dL Normal No Dec 06 .total informati 2016 4:20 [Mass/vol on in PM ume] in source Serum or data Plasma Urea 7 - 18 mg/dL Normal No Dec 06 nitrogen informati 2016 4:20 [Mass/vol on in PM ume] in source Serum or data Plasma Calcium 8.5 - mg/dL Normal No Dec 06 [Mass/vol 10.1 informati 2016 4:20 ume] in on in PM Serum or source Plasma data Chloride 98 - 107 mmoL/L Normal No Dec 06 [Moles/vo informati 2016 4:20 lume] in on in PM Serum or source Plasma data Carbon 21.0 - mmoL/L Normal No Dec 06 dioxide, 32.0 informati 2016 4:20 total on in PM [Moles/vo source lume] in data Serum or Plasma Creatinin 0.55 - mg/dL Normal No Dec 06 e 1.02 informati 2016 4:20 [Mass/vol on in PM ume] in source Serum or data Plasma Estimated 59- ML/MIN No REFERENCE Dec 06 informati RANGE: 2017 4:20 glomerula on in >60 PM r source ML/MIN/1. filtratio data 73 SQUARE n rate METERSIf (GF this patient is -A merican, then multiply theresult by 1.210. Globulin 1.3 - 3.2 gm/dL High No Dec 06 [Mass/vol informati 2016 4:20 ume] in on in PM Serum source data Glucose 74 - 106 mg/dL High No Dec 06 [Mass/vol informati 2016 4:20 ume] in on in PM Serum or source Plasma data Potassium 3.5 - 5.1 mmoL/L Normal No Dec 06 inform2016 4:20 [Moles/vo on in PM lume] in source Serum or data Plasma Sodium 136 - 145 mmoL/L Normal No Dec 06 [Moles/vo informati 2016 4:20 lume] in on in PM Serum or source Plasma data Aspartate 15 - 37 U/L Normal No Dec 06 inform2016 4:20 aminotran on in PM sferase source [Enzymati data c activity/ volume] in Serum or Plasma Alanine 12 - 78 U/L Normal No Dec 06 aminotran inform2016 4:20 sferase on in PM [Enzymati source c data activity/ volume] in Serum or Plasma Protein 6.4 - 8.2 gm/dL Normal No Dec 06 [Mass/vol informati 2016 4:20 ume] in on in PM Serum or source Plasma data Thyroxine (T4) free [Mass/volume] in Serum or Plasma Observa Value Referen Units Interpr Notes Date tion ce etation Range Thyroxine 0.76 - ng/dL Normal No Dec 06 (T4) 1.46 inform2016 4:20 free on in PM [Mass/vol source ume] in data Serum or Plasma Thyrotropin [Units/volume] in Serum or Plasma Observa Value Referen Units Interpr Notes Date tion ce etation Range Thyrotrop 0.358 - uIU/ml Normal No Dec 06 in 3.740 informati 2016 4:20 [Units/vo on in PM lume] in source Serum or data Plasma Hemoglobin A1c in Blood Observa Value Referen Units Interpr Notes Date tion ce etation Range Hemoglo 5.3 0.0 - % Normal < 6% Dec 06 bin A1c 7.0 NON-HODA 2017 in BETIC 4:20 PM Blood LEVEL< 7% CONTROL LED DIABETI C LEVEL> 8% POORLY CONTROL LED DIABETI C LEVEL CBC W Auto Differential panel in Blood Observa Value Referen Units Interpr Notes Date tion ce etation Range Basophils 0 - 0.2 K/MM3 Normal No Dec 06 informati 2016 4:20 [#/volume on in PM ] in source Blood by data Automated count Basophils 0.1 - 2.0 % Normal No Dec 06 informati 2016 4:20 leukocyte on in PM s in source Blood by data Automated count Eosinophi 0.0 - 0.4 K/mm3 Normal No Dec 06 ls informati 2016 4:20 [#/volume on in PM ] in source Blood by data Automated count Eosinophi 0.1 - % Normal No Dec 06 ls/100 12.0 informati 2016 4:20 leukocyte on in PM s in source Blood by data Automated count Granulocy 1.8 - 7.8 K/mm3 Normal No Dec 06 jessica informati 2016 4:20 [#/volume on in PM ] in source Blood by data Automated count Granulocy 37.0 - % Normal No Dec 06 jessica/100 80.0 informati 2016 4:20 leukocyte on in PM s in source Blood by data Automated count Hematocri 37.0 - % Normal No Dec 06 t [Volume 47.0 informati 2016 4:20 on in PM Fraction] source of Blood data Hemoglobi 12.2 - g/dL Low No Dec 06 n 16.2 informati 2016 4:20 [Mass/vol on in PM ume] in source Blood data Lymphocyt 0.7 - 4.5 K/mm3 Normal No Dec 06 es informati 2016 4:20 [#/volume on in PM ] in source Unspecifi data ed specimen by Automated count Lymphocyt 10 - 50.0 % Normal No Dec 06 es informati 2016 4:20 [#/volume on in PM ] in source Unspecifi data ed specimen by Automated count Erythrocy 27 - 31.2 pg Normal No Dec 06 te mean informati 2016 4:20 corpuscul on in PM ar source hemoglobi data n [Entitic mass] Erythrocy 31.8 - g/dl Normal No Dec 06 te mean 35.4 informati 2016 4:20 corpuscul on in PM ar source hemoglobi data n concentra tion [Mass/vol ume] by Automated count Erythrocy 82.2 - fl Normal No Dec 06 te mean 97.8 informati 2017 4:20 corpuscul on in PM ar volume source [Entitic data volume] by Automated count Monocytes 0.1 - 1.0 K/mm3 Normal No Dec 06 informati 2017 4:20 [#/volume on in PM ] in source Blood by data Automated count Monocytes 1.7 - 9.3 % Normal No Dec 06 /100 informati 2017 4:20 leukocyte on in PM s in source Blood by data Automated count Platelet 7.4 - fl Normal No Dec 06 mean 10.4 informati 2017 4:20 volume on in PM [Entitic source volume] data in Blood by Automated count Platelets 142 - 424 K/mm3 Normal No Dec 06 informati 2017 4:20 [#/volume on in PM ] in source Blood data Erythrocy 4.2 - 5.4 M/mm3 Low No Dec 06 jessica informati 2017 4:20 [#/volume on in PM ] in source Amniotic data fluid Erythrocy 11.5 - % Normal No Dec 06 te 17.5 informati 2017 4:20 distribut on in PM ion width source [Entitic data volume] by Automated count Leukocyte 4.8 - K/MM3 Normal No Dec 06 s 10.8 informati 2017 4:20 [#/volume on in PM ] in source Blood data
--- OUTSIDE RECORDS SUMMARY | 2017-02-25 06:38 | External Medical Summary Rpt ---
[...] with a HCV Nucleic Acid Amplifica tiontest ([id number]). Performed at: [facility] [place] [address] [address] [place], [place] [id number] Director Of Product Marketing: Jonathan Farrell PhD, Phone: [phone] Hepatit Negativ Negativ No No No [...]
== END 2017-02-18 17:04 | disposition home or self-care (01) ==
LOC: ER 13:57
PROVIDERS: Emergency Medicine
DX: R55 Syncope and collapse (principal); I25.10 Atherosclerotic heart disease of native coronary artery without angina pectoris; Z98.61 Coronary angioplasty status; I10 Essential (primary) hypertension; E78.5 Hyperlipidemia, unspecified; J44.9 Chronic obstructive pulmonary disease, unspecified; Z85.41 Personal history of malignant neoplasm of cervix uteri; Z79.899 Other long term (current) drug therapy

== ENCOUNTER → 2017-02-24 | Outpatient (CLI) | payer MEDICARE ==
[~2017-02-24] MED LIST changes: +ATORVASTATIN CA20 M1 PO; +AUGMENTIN 875-1 EACH PO; +HCTZ/TRIAMTEREN1 CAP PO; +LASIX 20MG. TAB20 MG PO; +NITROGLYCERIN0.4 M1 SL
[2017-02-24 18:10] LABS: HEMOGLOBIN 12.6 g/dL (12.2-16.2); LYMPH # 2.4 K/mm3 (0.7-4.5); LYMPH % 28.6 % (10-50.0)
[2017-02-24 18:53] LABS: BUN 19 mg/dL (7-18)
[2017-02-24 18:58] LABS: GFR (ESTIMATED) 50 ML/MIN (59-)
== END ==
LOC: RT 14:38 → LAB 14:38
PROVIDERS: Emergency Medicine
DX: R42 Dizziness and giddiness (principal); Z79.899 Other long term (current) drug therapy

== ENCOUNTER 2017-02-25 23:58 | Emergency (ER) | payer MEDICARE ==
[~2017-02-25] VITALS: Ht 167.6 cm; Wt 66.2 kg
--- NOTE | 2017-02-26 00:14 | Emergency Room Report ---
See Addendum History of Present Illness Time Seen by MD Castillo Presenting Problem in Triage Pt arrived:Walked Presenting Problem:CHEST PAIN STARTED 15 MINUTES AGO, SOA, NAUSEATED, RATES PAIN AN 8, FEELS LIKE PRESSURE. 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 N Clinical Suspician of Infection? N Mental Status: 1 - Regular (Normal Baseline) Sepsis Risk:Low Sepsis Risk Have you (or family members/close friends) recently traveled outside the [place]? N If Yes, where/when: Have you had exposure to infectious disease within the past month? N TB? Other? Specify: Source patient, RN notes reviewed, family, old records Exam Limitations no limitations Comment pt with chest pain after becoming upset and threatened - she has hx of chest pain with cath a few months ago - no syncope Cardiac Chest Pain Chest pain indicative of cardiac No Timing/Duration this evening Severity moderate ALLERGIES Coded Allergies: Bumble Bee (BEE,BUMBLE) (05/22/16) Penicillins (02/18/17) Home Medications Active Scripts Ondansetron Hydrochloride (Ondansetron Odt) 4 MG PO Q6HP PRN vomiting #6 ODT Prov: 05/22/16 Furosemide (Lasix 20MG) 20 MG PO DAILY #30 TAB Prov: 01/21/17 Reported Medications Metoprolol Succinate (Metoprolol Succinate XL) 50 MG PO DAILY #30 Hydrochlorothiazide W/Triamter (Triamterene-Hctz 37.5-25 MG Tb) 1 CAP PO DAILY #30 Atorvastatin Calcium 20 MG PO DAILY #30 Nitroglycerin 0.4 MG SL Q 5MIN PRN CHEST PAIN #25 History Medical History General CAD? Yes Angina: Yes W[place]: No Hypertension? Yes Hyperlipidemia? Yes CHF? No DVT? No PE? No COPD? Yes Asthma? Yes Anemia? No GERD? No Gastric ulcers? No GI Bleed? No Hernia? No Thyroid Problems? No Hypothyroidism? No CVA? No Seizures? No Diabetes? No Renal Insuffiency? No End Stage Renal Disease? No UTI? Yes Stones? No BPH? No GB Disease: Yes Nephritic Syndrome? No Asplenia? No Hepatitis? No Sickle Cell Disease? No Arthritis? No Migraines? No Cataracts? No Glaucoma? No MRSA? No HIV? No TB? No Anxiety? No Depression? No Cancer? Yes Site: CERVICAL CA More? 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 Respiratory denies cough, denies shortness of breath Cardiovascular see HPI, chest pain, denies palpitations, denies syncope Gastrointestinal denies abdominal pain, denies diarrhea, denies vomiting Genitourinary denies: dysuria, frequency, hesitancy, hematuria. Musculoskeletal denies back pain, denies joint pain, denies neck pain Skin denies rash Psychiatric/Neurological denies anxiety, denies seizure Physical Exam Vital Signs Vital Signs Date Time Temp Pulse Resp B/P Pulse O2 O2 Flow FiO2 Ox Delivery Rate 02/26 0214 67 20 159/86 97 02/26 0046 68 16 173/104 98 02/26 0001 97.8 78 16 181/113 99 - WBC >12,000 or <4,000 or 10% bands? 2 or more SIRS Criteria Met? B/P:159/86 MAP:135 Creatinine >2.0? UA output<0.5ml/kg/hr for 2 hrs? Platelet count >100,000? Lactate >2.0mmol/1? INR >1.2 or PTT > than 60 sec? Evidence of Organ Dysfunction? Provider documented clinical suspician of infection? N Sepsis Criteria Count: 0 Sepsis Risk: Low Sepsis Risk General Appearance no apparent distress Eye Exam - bilateral eye PERRL, bilateral eye EOMI Ear, Nose, Throat normal ENT inspection Neck supple Respiratory Status No: respiratory distress. Lung Sounds bilateral: lungs clear. Cardiovascular regular rate/rhythm, systolic murmur Peripheral Pulses Pulses normal Yes Gastrointestinal soft Extremities normal inspection Strength 4 Upper Ext (L), 4 Upper Ext (R), 4 Lower Ext (L), 4 Lower Ext (R) Neurologic alert, button clamper II-XII nml as tested, no motor/sensory deficits Reflexes Reflexes normal Yes Mental status normal mood/affect Skin no rash cons.w/shingles Medical Decision Making LABS/Meds/Orders Pt receiving controlled substance in ED? No Results/Orders Laboratory Tests 02/26/17 0024: Sodium 134 L, Potassium 3.7, Chloride 97 L, Carbon Dioxide 31, BUN 24 H, Creatinine 1.2 H, Estimated Creat Clear 51, Estimated GFR (MDRD) 46 L, Glucose 100, Calcium 9.6, Total Bilirubin 0.3, AST 18, ALT 27, Alkaline Phosphatase 110, Creatine Kinase 131, CK-MB (CK-2) Rel Index 1.1, CK and CKMB Interp 1.5, Troponin I < 0.02, Total Protein 8.1, Albumin 4.3, Globulin 3.8 H, Albumin/ Globulin Ratio 1.1, WBC 9.6, RBC 4.47, Hgb 12.8, Hct 40.1, MCV 89.7, RDW 12.5, Plt Count 285, MPV 7.2 L, Gran % 55.9, Gran # 5.4, Lymphocytes % 35.0, Monocytes % 4.9, Eosinophils % 3.6, Basophils % 0.6, Lymphocytes # 3.4, Monocytes # 0.5, Eosinophils # 0.4, Basophils # 0.1, PUBS MCHC 31.9, MCH 28.6 Current Medication Orders Sig/Meli Start time Last Medication Dose Route Stop Time Status Admin Sodium Chloride 10 ML PRN PRN 02/26 15 AC IV 02/28 8 Orders Procedure Date/time Status 12 LEAD EKG-BESSON (INITIAL) 02/27 8 Active ELECTROCARDIOGRAM REQUEST 02/27 8 Active CBC WITH AUTO DIFF 02/27 8 Complete CARDIAC ENZYMES 02/27 8 Complete CHEM 12 PROFILE 02/27 8 Complete 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 of ischemic chgs Departure Departure Time of Disposition 224 Disposition DC Home or Self Care(routine) Clinical Impression Primary Impression: Chest pain Qualifiers: Chest pain type: precordial pain Qualified Code: R07.2 - Precordial pain Secondary Impressions: HTN (hypertension) Qualifiers: Hypertension type: essential hypertension Qualified Code: I10 - Essential (primary) hypertension Condition STABLE Referrals Evita MA,Manpreet Pérez (Family) Patient Instructions DI for Chest Pain Additional Instructions see pcp for follow up Discharge Counseling Counseled pt/family regarding diagnosis, test results, follow up needs ED Critical Care Critical Care No at [id number]
[2017-02-26 00:33] LABS: HEMOGLOBIN 12.8 g/dL (12.2-16.2); LYMPH # 3.4 K/mm3 (0.7-4.5)
[2017-02-26 01:21] LABS: BUN 24 mg/dL (7-18); GFR (ESTIMATED) 46 ML/MIN (59-)
[2017-02-26 02:36] VITALS: BP 159/86
--- OUTSIDE RECORDS SUMMARY | 2017-02-27 01:43 | External Medical Summary Rpt | CCD ---
Author Author , JERRY Organization JERRY Address Unknown Phone [email or web address] Immunization Name Date Rout CVX Reac Dose Comm Prov Is Faci e tion ent ider Refu lity Give sed n Infl 01-0 Intr 140 0.5 Hist WALM No WALM uenz 2-20 amus mL oric ART5 ART5 a, 17 cula al 91 91 P-Fr r Info ee rmat ion - Sour ce Unsp ecif ied
--- OUTSIDE RECORDS SUMMARY | 2017-02-27 01:43 | External Medical Summary Rpt | CCD ---
Author Author , JERRY Organization JERRY Address Unknown Phone [email or web address] Immunization Name Date Rout CVX Reac Dose Comm Prov Is Faci e tion ent ider Refu lity Give sed n Infl 01-0 Intr 140 0.5 Hist WALM No WALM uenz 2-20 amus mL oric ART5 ART5 a, 17 cula al 91 91 P-Fr r Info ee rmat ion - Sour ce Unsp ecif ied
--- OUTSIDE RECORDS SUMMARY | 2017-02-27 01:44 | External Medical Summary Rpt ---
Author Author JERRY Polanco, ODILONMANDA [employer] Organization [employer] Address Unknown Phone Unavailable Results Hemoglobin A1c in Blood Observa Value Referen Units Interpr Notes Date tion ce etation Range Hemoglo 5.8 0.0 - % Normal < 6% Feb 24 bin A1c 7.0 NON-HODA 2017 in BETIC 2:20 PM Blood LEVEL< 7% CONTROL LED DIABETI C LEVEL> 8% POORLY CONTROL LED DIABETI C LEVEL Comprehensive metabolic 2000 panel in Serum or Plasma Observa Value Referen Units Interpr Notes Date tion ce etation Range Albumin/G 1.1 - 1.8 No Normal No Feb 24 lobulin informati informati 2017 2:20 [Mass on in on in PM ratio] in source source Serum or data data Plasma Albumin 3.4 - 5.0 gm/dL Normal No Feb 24 [Mass/vol informati 2017 2:20 ume] in on in PM Serum or source Plasma data Alkaline 46 - 116 U/L Normal No Feb 24 phosphata informati 2017 2:20 se on in PM [Enzymati source c data activity/ volume] in Serum or Plasma Bilirubin 0.2 - 1.0 mg/dL Normal No Feb 24 .total informati 2017 2:20 [Mass/vol on in PM ume] in source Serum or data Plasma Urea 7 - 18 mg/dL High No Feb 24 nitrogen informati 2017 2:20 [Mass/vol on in PM ume] in source Serum or data Plasma Calcium 8.5 - mg/dL Normal No Feb 24 [Mass/vol 10.1 informati 2017 2:20 ume] in on in PM Serum or source Plasma data Chloride 98 - 107 mmoL/L Normal No Feb 24 [Moles/vo informati 2017 2:20 lume] in on in PM Serum or source Plasma data Carbon 21.0 - mmoL/L Normal No Feb 24 dioxide, 32.0 informati 2017 2:20 total on in PM [Moles/vo source lume] in data Serum or Plasma Creatinin 0.55 - mg/dL High No Feb 24 e 1.02 2016 2:20 [Mass/vol on in PM ume] in source Serum or data Plasma Estimated 59- ML/MIN Low REFERENCE Feb 24 RANGE: 2016 2:20 glomerula >60 PM r ML/MIN/1. filtratio 73 SQUARE n rate METERSIf (GF this patient is -A merican, then multiply theresult by 1.210. Globulin 1.3 - 3.2 gm/dL High No Feb 24 [Mass/vol informati 2016 2:20 ume] in on in PM Serum source data Glucose 74 - 106 mg/dL Normal No Feb 24 [Mass/vol informati 2016 2:20 ume] in on in PM Serum or source Plasma data Potassium 3.5 - 5.1 mmoL/L Normal No Feb 242016 2:20 [Moles/vo on in PM lume] in source Serum or data Plasma Sodium 136 - 145 mmoL/L Normal No Feb 24 [Moles/vo 2016 2:20 lume] in on in PM Serum or source Plasma data Aspartate 15 - 37 U/L Low No Feb 242016 2:20 aminotran on in PM sferase source [Enzymati data c activity/ volume] in Serum or Plasma Alanine 12 - 78 U/L Normal No Feb 24 aminotran 2016 2:20 sferase on in PM [Enzymati source c data activity/ volume] in Serum or Plasma Protein 6.4 - 8.2 gm/dL Normal No Feb 24 [Mass/vol informati 2016 2:20 ume] in on in PM Serum or source Plasma data CBC W Auto Differential panel in Blood Observa Value Referen Units Interpr Notes Date tion ce etation Range Basophils 0 - 0.2 K/MM3 Normal No Feb 242016 2:20 [#/volume on in PM ] in source Blood by data Automated count Basophils 0.1 - 2.0 % Normal No Feb 242016 2:20 leukocyte on in PM s in source Blood by data Automated count Eosinophi 0.0 - 0.4 K/mm3 Normal No Feb 24 ls ati 2016 2:20 [#/volume on in PM ] in source Blood by data Automated count Eosinophi 0.1 - % Normal No Feb 24 ls/100 12.0 inform2016 2:20 leukocyte on in PM s in source Blood by data Automated count Granulocy 1.8 - 7.8 K/mm3 Normal No Feb 24 jessica informati 2016 2:20 [#/volume on in PM ] in source Blood by data Automated count Granulocy 37.0 - % Normal No Feb 24 jessica/100 80.0 informati 2016 2:20 leukocyte on in PM s in source Blood by data Automated count Hematocri 37.0 - % Normal No Feb 24 t [Volume 47.0 informati 2016 2:20 on in PM Fraction] source of Blood data Hemoglobi 12.2 - g/dL Normal No Feb 24 n 16.2 informati 2016 2:20 [Mass/vol on in PM ume] in source Blood data Lymphocyt 0.7 - 4.5 K/mm3 Normal No Feb 24 es informati 2016 2:20 [#/volume on in PM ] in source Unspecifi data ed specimen by Automated count Lymphocyt 10 - 50.0 % Normal No Feb 24 es informati 2016 2:20 [#/volume on in PM ] in source Unspecifi data ed specimen by Automated count Erythrocy 27 - 31.2 pg Normal No Feb 24 te mean 2016 2:20 corpuscul on in PM ar source hemoglobi data n [Entitic mass] Erythrocy 31.8 - g/dl Normal No Feb 24 te mean 35.4 inform2016 2:20 corpuscul on in PM ar source hemoglobi data n concentra tion [Mass/vol ume] by Automated count Erythrocy 82.2 - fl Normal No Feb 24 te mean 97.8 informati 2016 2:20 corpuscul on in PM ar volume source [Entitic data volume] by Automated count Monocytes 0.1 - 1.0 K/mm3 Normal No Feb 24 informati 2016 2:20 [#/volume on in PM ] in source Blood by data Automated count Monocytes 1.7 - 9.3 % Normal No Feb 24 / informati 2016 2:20 leukocyte on in PM s in source Blood by data Automated count Platelet 7.4 - fl Normal No Feb 24 mean 10.4 informati 2016 2:20 volume on in PM [Entitic source volume] data in Blood by Automated count Platelets 142 - 424 K/mm3 No No Feb 24 informati informati 2016 2:20 [#/volume on in on in PM ] in source source Blood data data Erythrocy 4.2 - 5.4 M/mm3 Normal No Oct 12 jessica informati 2017 2:20 [#/volume on in PM ] in source Amniotic data fluid Erythrocy 11.5 - % Normal No Oct 12 te 17.5 informati 2017 2:20 distribut on in PM ion width source [Entitic data volume] by Automated count Leukocyte 4.8 - K/MM3 Normal No Oct 12 s 10.8 informati 2017 2:20 [#/volume on in PM ] in source Blood data Comprehensive metabolic 2000 panel in Serum or [...] -Gault formula Estimated 59- ML/MIN Low REFERENCE Feb 18 RANGE: 2016 2:15 glomerula >60 PM r [...] 145 mmoL/L Normal No Feb 18 [Moles/vo ati 2016 2:15 lume] in on in PM Serum or source Plasma data Aspartate 15 - 37 U/L Normal AST SeptemberFeb 182016 2:15 aminotran FALSELY PM sferase ELEVATED [Enzymati DUE TO c SLIGHT activity/ HEMOLYSIS volume] in Serum or Plasma Alanine 12 - 78 U/L Normal No Feb 18 aminotran informati 2016 2:15 sferase on in PM [Enzymati [...] 0.1 - 2.0 % Normal No Feb 182016 2:15 leukocyte on in PM s in source Blood by data Automated count Eosinophi 0.0 - 0.4 K/mm3 Normal No Feb 18 ls 2016 2:15 [#/volume on in PM ] in source Blood by data Automated count Eosinophi 0.1 - % Normal No Feb 18 ls/100 12.0 2016 2:15 leukocyte on in PM s in source Blood by data Automated count Granulocy 1.8 - 7.8 K/mm3 Normal No Feb 6 jessica informati 2016 2:15 [#/volume on in PM ] in source Blood by data Automated count Granulocy 37.0 - % Normal No Feb 6 jessica/100 80.0 informati 2016 2:15 leukocyte on in PM s in source Blood by data Automated count Hematocri 37.0 - % Normal No Feb 18 t [Volume 47.0 informati 2016 2:15 on in PM Fraction] source of Blood data Hemoglobi 12.2 - g/dL No No Feb 18 n 16.2 informati informati 2016 2:15 [Mass/vol on in on in PM ume] in source source Blood data data Lymphocyt 0.7 - 4.5 K/mm3 Normal No Feb 18 es inform2016 2:15 [#/volume on in PM ] in [...] 1.7 - 9.3 % Normal No Feb 18 /100 informati 2016 2:15 leukocyte on in PM [...] M/mm3 Normal No Feb 6 jessica informati 2016 2:15 [#/volume on in PM ] in source Amniotic data fluid Erythrocy 11.5 - % Normal No Feb 6 te 17.5 informati 2016 2:15 distribut on in PM ion width source [Entitic data volume] by Automated count Leukocyte 4.8 - K/MM3 Normal No Feb 6 s 10.8 informati 2016 2:15 [#/volume on in PM [...] - 0.2 K/MM3 Normal No Sep 7 informati 2016 [#/volume on in 10:50 PM ] in source Blood by data Automated count Basophils 0.1 - 2.0 % Normal No Sep 7 /100 informati 2017 leukocyte on in 10:50 PM s in source Blood by data Automated count Eosinophi 0.0 - 0.4 K/mm3 Normal No Sep 7 ls informati 2017 [#/volume on in 10:50 PM ] in source Blood by data Automated count Eosinophi 0.1 - % Normal No Sep 7 ls/100 12.0 informati 2016 leukocyte on in 10:50 PM s in source Blood by data Automated count Granulocy 1.8 - 7.8 K/mm3 Normal No Sep 7 jessica informati 2017 [#/volume on in 10:50 PM ] [...] Normal No Sep 7 mean 10.4 informati 2017 volume on in 10:50 PM [Entitic source [...] 59- ML/MIN Low REFERENCE Jan 11 RANGE: 2017 7:35 glomerula >60 AM r ML/MIN/1. filtratio [...] Normal No Jan 11 ls/100 12.0 informati 2017 7:35 leukocyte on in AM s in [...] No Jan 11 te mean 97.8 informati 2016 7:35 corpuscul on in AM ar volume [...] is B e e informa informa informa 2016 virus tion in tion in tion in [...] with a HCV Nucleic Acid Amplifica tiontest ([id number]). Performed at: [address] [id number] Human Resources Leader: Jonathan Farrell PhD, Phone: [phone] Hepatit Negativ Negativ No No No [...] Normal No Dec 06 dioxide, 32.0 informati 2017 4:20 total on in PM [Moles/vo source lume] in data Serum or Plasma Creatinin 0.55 - mg/dL Normal No Dec 06 e 1.02 informati 2017 4:20 [Mass/vol on in PM ume] in [...] Plasma Observa Value Referen Units Interpr Notes ti etation Range Thyroxine 0.76 - ng/dL Normal No Dec 06 (T4) 1.46 inform2016 4:20 free on in PM [Mass/vol source ume] in data Serum or Plasma Thyrotropin [Units/volume] in Serum or Plasma Observa Value Referen Units Interpr Notes ti ce etation Range Thyrotrop 0.358 - uIU/ml Normal No Dec 06 in 3.740 informati 2016 4:20 [Units/vo on in PM lume] in source Serum or data Plasma Hemoglobin A1c in Blood Observa Value Referen Units Interpr Notes Date ti ce etation Range Hemoglo 5.3 0.0 - [...] No Dec 06 te mean 97.8 informati 2016 4:20 corpuscul on in PM ar volume source [Entitic data volume] by Automated count Monocytes 0.1 - 1.0 K/mm3 Normal No Dec 06 informati 2016 4:20 [...] Normal No Dec 06 s 10.8 informati 2016 4:20 [#/volume on in PM ] in source Blood data
--- OUTSIDE RECORDS SUMMARY | 2017-02-27 01:44 | External Medical Summary Rpt ---
[...] with a HCV Nucleic Acid Amplifica tiontest ([id number]). Performed at: [address] [id number] Occupational Therapy Director: Jonathan Farrell PhD, Phone: [phone] Hepatit Negativ Negativ No No No [...]
== END 2017-02-26 02:37 | disposition home or self-care (01) ==
LOC: ER 23:58
PROVIDERS: Emergency Medicine
DX: R07.2 Precordial pain (principal); I10 Essential (primary) hypertension; F17.210 Nicotine dependence, cigarettes, uncomplicated; J44.9 Chronic obstructive pulmonary disease, unspecified

== ENCOUNTER → 2017-03-07 | Outpatient (CLI) | payer MEDICARE ==
--- NOTE | 2017-03-07 11:11 | CARDIOVASCULAR REPORT ---
"Cerebrovascular Exam Indications: 780.4 Dizziness and giddiness. IMPRESSIONS 1. The bilateral vertebral arteries are patent with normal antegrade flow. 2. Study suggests less than 20% stenosis involving the right internal carotid artery. 3. Study suggests 20-49% stenosis involving the left internal carotid artery, lower end of scale. History: Risk factors: Current tobacco use. Carotid duplex study. Complete study and Doppler flow study including spectral analysis, color and wise scale imaging. Height: Height: 167.6cm. Height: 66in. Weight: Weight: 65.8kg. Weight: 144.7lb. Body mass index: BMI: 23.4kg/m^2. Body surface area: BSA: 1.76m^2. Location: Vascular laboratory. Patient status: Outpatient. Tables: Arterial flow: + +--------+--------+ |Location |V sys |V ed | + +--------+--------+ |Right CCA - proximal|79.4cm/s|23.6cm/s| + +--------+--------+ |Right CCA - distal |79.4cm/s|26.7cm/s| + +--------+--------+ |Right ECA |92.3cm/s|--------| + +--------+--------+ |Right ICA - proximal|86.9cm/s|33.4cm/s| + +--------+--------+ |Right ICA - mid |91.8cm/s|34.4cm/s| + +--------+--------+ |Right ICA - distal |93.3cm/s|33.4cm/s| + +--------+--------+ |Right vertebral |45.2cm/s|--------| + +--------+--------+ |Left CCA - proximal |96.7cm/s|26cm/s | + +--------+--------+ |Left CCA - distal |78.1cm/s|25cm/s | + +--------+--------+ |Left ECA |92.2cm/s|--------| + +--------+--------+ |Left ICA - proximal |62.9cm/s|19.2cm/s| + +--------+--------+ |Left ICA - mid |85.9cm/s|34.2cm/s| + +--------+--------+ |Left ICA - distal |96.4cm/s|43.3cm/s| + +--------+--------+ |Left vertebral |56.5cm/s|--------| + +--------+--------+ Velocity ratios: + + + + + + | |Right, V sys|Right, V ed|Left, V sys|Left, V ed| + + + + + + |Max ICA/dist CCA|1.18 |1.29 |1.23 |1.73 | + + + + + + (Report amended ) Electronically signed by: Frederic Marshall [id number]"
== END ==
LOC: RT 10:33
DX: R42 Dizziness and giddiness (principal)